=== PATIENT | female | born 1995 ===

== ENCOUNTER 2021-09-30 18:50 | Inpatient (IN) | payer OTHER ==
[~2021-09-30] VITALS: Ht 45.7 cm; Wt 2.5 kg
[2021-10-01] MEDS ORDERED: PRENATAL + DHA1 EAC1 (08:29)
== END 2021-10-03 14:23 | disposition home or self-care (01) | DRG 807 ==
LOC: LDR 18:50 → OB/GYN 10-01 17:22
PROVIDERS: ADMIT Obstetrics & Gynecology; ATTEND Obstetrics & Gynecology
PROC: 4A1HXCZ Monitoring of Products of Conception, Cardiac Rate, External Approach (ICD-10-PCS; 2021-09-30)
PROC: 10E0XZZ Delivery of Products of Conception, External Approach (ICD-10-PCS; principal; 2021-10-01)
DX: O80 Encounter for full-term uncomplicated delivery (principal); Z37.0 Single live birth; Z3A.38 38 weeks gestation of pregnancy; Z20.822 Contact with and (suspected) exposure to COVID-19